=== PATIENT | female | born 1990 | race Two or more races ===

== ENCOUNTER 2025-02-26 21:56 | Emergency (ER) | payer OTHER ==
[~2025-02-26] VITALS: Ht 175.3 cm; Wt 100.7 kg
[2025-02-26 22:29] LABS: Urine Bacteria None Seen /hpf (None Seen)
[2025-02-26] MEDS: DexAMETHasone SOD PHOS 10MG/1ML VIAL INJ IM ONE (22:30)
[2025-02-26 22:31] LABS: Basophils # (auto) 0.1 10 ^3/uL (0-0.2); Basophils % (auto) 0.7 % (0.0-2.0); Eosinophils # (auto) 0.5 10 ^3/uL (0-0.8); Eosinophils % (auto) 4.1 % (0.0-7.0); Hematocrit 41.2 % (36.0-46.0); Hemoglobin 13.9 g/dL (12.2-16.2); Lymphocytes # (auto) 3.4 10 ^3/uL (0.4-5.4); Lymphocytes % (auto) 30.5 % (10.0-50.0); Mean Corpuscular Hemoglobin 29.8 pg (28.0-32.0); Mean Corpuscular Hgb Conc. 33.9 g/dL (32.0-36.0); Mean Corpuscular Volume 87.8 fL (80.0-100.0); Monocytes # (auto) 0.7 10 ^3/uL (0-1.3); Monocytes % (auto) 6.6 % (0.0-12.0); Neutrophils # (auto) 6.4 10 ^3/uL (1.6-8.6); Neutrophils % (auto) 58.1 % (37.0-80.0); Platelet Count (auto) 351 10^3/uL (140-450); Red Blood Cells 4.69 10^6/uL (4.0-5.20); Red Cell Distribution Width 13.2 % (11.8-14.3); White Blood Cell 11.1 10^3/uL (4.4-10.8)
[2025-02-26 22:36] LABS: Potassium 3.9 mmol/L (3.5-5.1); Sodium 141 mmol/L (136-145)
[2025-02-26 22:37] LABS: Urine Blood Negative /uL (Negative); Urine Clarity Clear (Clear); Urine Color Light-Yellow (Yellow); Urine Protein, UAD Negative (Negative); Urine Squamous Epithelial Cell FEW /hpf (<5); Urine Urobilinogen Normal (Negative); Urine WBC 2 /HPF (0-5); Urine pH 5.5 (5.0-9.0)
[2025-02-26 22:37] LABS: Anion Gap 9 (5-15); Calcium 10.1 mg/dL (8.7-10.4); Carbon Dioxide 25 mmol/L (20-31)
[2025-02-26 22:42] LABS: Glucose 95 mg/dL (74-106); Lipase 51 U/L (12-53)
[2025-02-26] MEDS: ALBUTEROL SULF 2.5 MG/0.5ML(0.5%) NEB SOLN NEB ONE (22:42)
[2025-02-26] MEDS: IPRATROPIUM BROM 0.5 MG/2.5ML INH SOL NEB ONE (22:42)
[2025-02-26 22:45] LABS: Blood Urea Nitrogen 9 mg/dL (9-23); Chloride 107 mmol/L (98-107)
--- NOTE | 2025-02-26 23:17 | DVH ---
CHEST RADIOGRAPH Indication: Shortness of breath Technique: Single frontal view of the chest was obtained COMPARISON: None FINDINGS: Lines and Tubes: None Lungs: Clear Pleura: No effusion. No pneumothorax. Cardiomediastinal contours: Unremarkable Bones: Unremarkable IMPRESSION: 1. No acute disease.
[2025-02-27] MEDS: IOHEXOL 350 MG/ML 100ML IJ ONE (01:12)
--- NOTE | 2025-02-27 01:53 | DVH ---
CTA Chest with intravenous contrast INDICATION: Elevated D-dimer/shortness of breath COMPARISON: None TECHNIQUE: Multidetector spiral CTA of the chest was performed of the chest with intravenous contrast . PULMONARY ANGIOGRAPHY PROTOCOL was utilized using a bolus-tracking technique centered on the main p ulmonary artery. Axial, coronal and sagittal multiplanar and MIP reformats were performed. Radiation Dose : 1. Chest: CTDI volume is mGy. Dose-length product is mGy*cm The dose indicators for CT are the volume Computed Tomography (CT) Dose Index (CTDIvol) and the Dose Length Product (DLP), and are measured in units of mGy and mGy-cm, respectively. These indicators are not patient dose, but values generated from the CT scanner acquisition factors. The report includes radiation exposure data for exposures received during this examination. Findings: Pulmonary artery: No large central or large segmental pulmonary embolism. Lower neck: Normal thyroid. Lungs: No focal consolidation, pleural effusion or pneumothorax. Heart/Vascular Structures: Normal heart size. No pericardial effusion. Lymph Nodes: No adenopathy Pleura: No pleural effusion or significant pneumothorax. Musculoskeletal: No acute osseous abnormality. Soft tissues: Normal. Upper abdomen: Limited portions of the upper abdomen are unremarkable. IMPRESSION: 1. No pulmonary embolism. 2. No acute thoracic finding.
[2025-02-27] MEDS ORDERED: ALBU108A5 IN (01:55)
--- NOTE | 2025-02-27 01:56 | ED.PDOC ---
SOB-HPI HPI Comments Patient is a pleasant but obese 34-year-old female who arrives the ED today for complaints of shortness a breath concerns for the past few days. Patient states she has shortness a breath which in turn leads two chest pain from her heavy breathing and that in turn leads to pain in her back. Patient states she was diagnosed with asthma as a child, but has not used medication for asthma and years. Patient denies any fever nausea or vomiting. Patient was tachypneic and tachycardic at arrival. Chief Complaint: Chest Pain Time Seen by MD: 22:06 Reviewed notes: Nurses Notes Information Source: Patient Mode of Arrival: Ambulatory Severity: Moderate Timing: Days Duration: Since onset Context: At Rest PE Risk Factors: None History of: Asthma Prehospital treatment: None Modifying Factors: Nothing Associated Signs and Symptoms: Chest Pain Quality: Tightness Past Medical History PAST MEDICAL HISTORY: Asthma Surgical History: Denies all surgeries DENTAL TECHNOLOGIST History: No Pertinent DENTAL TECHNOLOGIST History Family History Family History: Reviewed,noncontributory to illness, No family hx of Cancer, No family hx of DM, No family hx of Heart chelita, No family hx of HTN, No family hx ofKidney chelita, No family hx of Liver chelita, No family hx of Lung chelita, No family hx of Stroke Social History Smoker: Non-Smoker Alcohol: Denies ETOH Use Drugs: Denies Drug Use Lives In: Home Constitutional: denies: chills, diaphoresis, fatigue, fever, malaise, sweats, weakness, others EENTM: denies: blurred vision, double vision, ear bleeding, ear discharge, ear drainage, ear pain, ear ringing, eye pain, eye redness, hearing loss, mouth pain, mouth swelling, nasal discharge, nose bleeding, nose congestion, nose pain, photophobia, tearing, throat pain, throat swelling, voice changes, others Respiratory: reports: shortness of breath; denies: cough, hemoptysis, orthopnea, SOB at rest, SOB with excertion, stridor, wheezing, others Cardiovascular: reports: chest pain; denies: dizzy spells, diaphoresis, Dyspnea on exertion, edema, irregular heart beat, left arm pain, lightheadedness, palpitations, PND, syncope, others Gastrointestinal: denies: abdomen distended, abdominal pain, blood streaked bowels, constipated, diarrhea, dysphagia, difficulty swallowing, hematemesis, melena, nausea, poor appetite, poor fluid intake, rectal bleeding, rectal pain, vomiting, others Genitourinary: denies: abnormal vagina bleeding, burning, dyspareunia, dysuria, flank pain, frequency, hematuria, incontinence, pain, , vagina discharge, urgency, others Neurological: denies: dizziness, fainting, headache, left sided numbness, left sided weakness, numbness, paresthesia, pre-existing deficit, right sided numbness, right sided weakness, seizure, speech problems, tingling, tremors, weakness, others Musculoskeletal: reports: back pain; denies: gout, joint pain, joint swelling, muscle pain, muscle stiffness, neck pain, others Integumetry: denies: bruises, change in color, change in hair/nails, dryness, laceration, lesions, lumps, rash, wounds, others Allergic/Immunocompromised: denies: Difficulty Healing, Frequent Infections, Hives, Itching, others Hematologic/Lymphatic: denies: anemia, blood clots, easy bleeding, easy bruising, swollen glands, others Endocrine: denies: excessive hunger, excessive sweating, excessive thirst, excessive urination, flushing, intolerance to cold, intolerance to heat, unexplained weight gain, unexplained weight loss, others Psychiatric: denies: anxiety, bipolar disorder, depression, hopeless, panic disorder, schizophrenia, sleepless, suicidal, others Physical Exam General Appearance: Moderate Distress (Patient was breathing heavy and in [id number] distress due to shortness a breath concerns.), Obese HEENT: Normal ENT Inspection, Pharynx Normal, TMs Normal Neck: Full Range of Motion, Non-Tender, Normal, Normal Inspection Respiratory: Other ( Mild right middle lobe wheezing appreciated. No accessory muscle use. No signs of respiratory distress.) Cardiovascular: No Edema, No JVD, No Murmur, No Gallop, Normal Peripheral Pulses, Regular Rate/Rhythm Breast Exam: Deferred Gastrointestinal: No Organomegaly, Non Tender, No Pulsatile Mass, Normal Bowel Sounds, Soft Genitalia: Deferred Pelvic: Deferred Rectal: Deferred Extremities: No calf tenderness, Normal capillary refill, Normal inspection, Normal range of motion, Non-tender, No pedal edema Neurologic: Alert, No Motor Deficits, Normal Affect, Normal Mood, No Sensory Deficits Cerebellar Function: Normal Reflexes: Normal Skin: Dry, Normal Color, Warm Lymphatic: No Adenopathy Was a procedure done? Was a procedure done?: No Differential Dx Differential Diagnosis: Asthma, Bronchitis, CHF, Pneumonia, Pulmonary Embolism, Respiratory Distress, URI X-Ray, Labs, Meds, VS Vital Signs Date Time Temp Pulse Resp B/P (MAP) Pulse Ox O2 Delivery O2 Flow Rate FiO2 02/27/25 01:09 65 19 97 Room Air 02/27/25 01:09 97.9 65 19 113/70 (84) 97 97.9 02/26/25 23:09 105 02/26/25 22:53 20 96 Room Air* 0 21 02/26/25 22:03 129 02/26/25 22:00 98.5 134 22 131/91 (104) 95 98.5 Lab Test 02/26/25 23:18 02/26/25 22:09 02/26/25 22:03 Range/Units Troponin I High Sensitivity < 3 L < 3 L </=34 ng/L Urine Color Light-yellow Yellow Urine Clarity Clear Clear Urine pH 5.5 5.0-9.0 Urine Specific [place] 1.010 1.001-1.035 Urine Protein Negative Negative Urine Ketones Negative Negative Urine Blood Negative Negative /uL Urine Nitrite Negative Negative Urine Bilirubin Negative Negative Urine Urobilinogen Normal Negative mg/dL Urine Leukocyte Esterase 1+ Negative /uL Urine RBC 2 0 - 4 /hpf Urine Microscopic WBC 2 0-5 /HPF Urine Squamous Epithelial Cells Few <5 /hpf Urine Bacteria None seen None Seen /hpf Urine Glucose Normal Normal mg/dL White Blood Count 11.1 H 4.4-10.8 10^3/uL Red Blood Count 4.69 4.0-5.20 10^6/uL Hemoglobin 13.9 12.2-16.2 g/dL Hematocrit 41.2 36.0-46.0 % Mean Corpuscular Volume 87.8 80.0-100.0 fL Mean Corpuscular Hemoglobin 29.8 28.0-32.0 pg Mean Corpuscular Hemoglobin Concent 33.9 32.0-36.0 g/dL Red Cell Distribution Width 13.2 11.8-14.3 % Platelet Count 351 140-450 10^3/uL Mean Platelet Volume 8.3 6.9-10.8 fL Neutrophils (%) (Auto) 58.1 37.0-80.0 % Lymphocytes (%) (Auto) 30.5 10.0-50.0 % Monocytes (%) (Auto) 6.6 0.0-12.0 % Eosinophils (%) (Auto) 4.1 0.0-7.0 % Basophils (%) (Auto) 0.7 0.0-2.0 % Neutrophils # (Auto) 6.4 1.6-8.6 10 ^3/uL Lymphocytes # (Auto) 3.4 0.4-5.4 10 ^3/uL Monocytes # (Auto) 0.7 0-1.3 10 ^3/uL Eosinophils # (Auto) 0.5 0-0.8 10 ^3/uL Basophils # (Auto) 0.1 0-0.2 10 ^3/uL Nucleated Red Blood Cells 0.0 % D-Dimer, Quantitative 0.52 H 0.0-0.49 mg/L FEU Sodium Level 141 136-145 mmol/L Potassium Level 3.9 3.5-5.1 mmol/L Chloride Level 107 98-107 mmol/L Carbon Dioxide Level 25 20-31 mmol/L Anion Gap 9 5-15 Blood Urea Nitrogen 9 9-23 mg/dL Creatinine 0.90 0.550-1.02 mg/dL Glomerular Filtration Rate Calc 87 >90 mL/min BUN/Creatinine Ratio 10.0 10.0-20.0 Serum Glucose 95 74-106 mg/dL Calcium Level 10.1 8.7-10.4 mg/dL B-Type Natriuretic Peptide 28.69 0-100 pg/mL Lipase 51 12-53 U/L Current Medications Medications (Trade) Dose Ordered Sig/Natalie Route Start Time Stop Time Status Last Admin Albuterol (Ventolin Medneb) 5 mg ONCE ONCE NEB 02/26/25 22:30 02/26/25 22:31 DC 02/26/25 22:42 Ipratropium [place] (Atrovent Medneb) 0.5 mg ONCE ONCE NEB 02/26/25 22:30 02/26/25 22:31 DC 02/26/25 22:42 Dexamethasone Sodium Phosphate (Decadron Injection) 10 mg ONCE ONCE IM 02/26/25 22:30 02/26/25 22:31 DC 02/26/25 22:30 X-Ray, Labs, Meds, VS Comment All studies performed the ED were evaluated by me personally. Serum studies were unremarkable for any systemic process. Chest x-ray was unremarkable for any consolidation or intrapulmonary concerns. CT angio was unremarkable for any PE formation. EKG revealed a sinus tachycardia with a rate of 105. Prolonged OH interval, probable left atrial enlargement with borderline T-wave abnormalities. OH interval two contain and QT interval of 395. Patient responded well to medication dispensed and was in good spirits at discharge. Patient appears to be suffering from an asthma exacerbation. Advised patient utilize medication as needed and additionally, patient should follow up with the primary care provider for discussions related to today's visit and long-term management of her asthma. Patient's home advised patient follow up with the primary care provider for discussions related to her unusual EKG findings. Time of 1ST Reevaluation: 01:51 Reevaluation 1ST: Improved Consultation: PCP, Cardiology Patient Education/Counseling: Diagnosis, Treatment Family Education/Counseling: Diagnosis, Treatment Departure 1 Departure Time of Disposition: 01:54 Impression: Primary Impression: Acute asthma exacerbation Disposition: HOME / SELF CARE / HOMELESS Condition: Stable Additional Instructions: Advised patient utilize medication as needed for symptomatic relief in additionally, patient should follow up with primary care provider for discussions related to her asthma diagnosis as well as evaluation of EKG results. e-Prescriptions Albuterol Sulfate (Albuterol Sulfate Hfa) 108 Mcg/Act Aer 108 MCG IN Q4HP PRN, #1 AER 1 Refill Prov: LYNDA CRAIG PAC 02/27/25 Discharged With: Self, Friend Critical Care Note Critical Care Time?: No Stability Stability form required: No Heart Score Heart Score: Heart Score Response (Comments) Value History Slightly Suspicious 0 EKG Repolarization Disturb 1 Age <45 0 Risk Factors No known risk factors 0 Troponin Normal limit 0 Total 1 LYNDA CRAIG PAC Feb 27, 2025 01:56
[2025-02-27 02:16] VITALS: BP 122/76; PULSE 89; RESP 16; TEMP 97.7; O2SAT 95
--- NOTE | 2025-02-28 11:11 | ECG ---
[facility] Test Date: 2025-02-26 Test Time: 23:09:59 Pat Name: WADE HENDERSON Department: ER Room: Gender: F Receiver: ER : 1990 Requested By: STEPH JEREZ Order Number: [id number] Reading MD: Measurements Intervals [place] Rate: 105 P: 89 WI: 215 QRS: 85 QRSD: 93 T: -63 QT: 395 QTc: 523 Interpretive Statements Sinus tachycardia Prolonged WI interval Probable left atrial enlargement RSR' in V1 or V2, right VCD or RVH Borderline T abnormalities, diffuse leads Prolonged QT interval Please click the below link to view image of tracing.
--- NOTE | 2025-02-28 12:15 | ECG ---
[facility] Test Date: 2025-02-26 Test Time: 22:03:06 Pat Name: WADE HENDERSON Department: ER Room: Gender: F Song Lyricist: AMARIS : 1990 Requested By: STEPH JEREZ Order Number: [id number] Reading MD: Measurements Intervals [place] Rate: 129 P: 90 AR: 136 QRS: 111 QRSD: 96 T: -67 QT: 331 QTc: 485 Interpretive Statements Sinus tachycardia LAE, consider biatrial enlargement Consider right ventricular hypertrophy Nonspecific T abnormalities, inferior leads Borderline prolonged QT interval Baseline wander in lead(s) II,aVR,aVF,V2 Please click the below link to view image of tracing.
== END 2025-02-27 02:20 | disposition home or self-care (01) ==
LOC: ER 21:56
DX: J45.901 Unspecified asthma with (acute) exacerbation (principal); E66.9 Obesity, unspecified; Z68.32 Body mass index [BMI] 32.0-32.9, adult
CPT/HCPCS: 36415; 71045; 71275; 80048; 81001; 83690; 83880; 84484; 85025; 85379; 93005; 94640; 96372; 99285; J1100; Q9967